=== PATIENT | male | born 1985 | race Asian ===

== ENCOUNTER 2019-06-13 10:13 | Emergency (ER) | payer SELFPAY ==
[2019-06-13] MEDS ORDERED: DICYCLOMINE HCL 10 MG CAP ONE (11:37)
[2019-06-13] MEDS ORDERED: NA CHLORIDE 0.9% 1,000 ML ONE ×2 (11:37→12:25)
[2019-06-13 11:40] LABS: Absolute Lymphocytes (CBC) 1.6 K/uL (0.7-4.9); Basophils % 0.3 % (0-1.3); Hematocrit 41.5 % (39.6-49.0); Lymphocytes % 27.9 % (15.3-44.8); MPV 9.1 fL (7.6-11.3); RBC Red Blood Cell Count 4.67 M/uL (4.33-5.43)
[2019-06-13 12:07] LABS: ALT/SGPT 23 U/L (12-78); AST/SGOT 11 U/L (15-37); Albumin 3.4 g/dL (3.4-5.0); Alkaline Phosphatase 103 U/L (45-117); BUN Blood Urea Nitrogen 8 mg/dL (7-18); Bicarbonate 27 mmol/L (21-32); Bilirubin Direct < 0.1 mg/dL (0-0.2); Bilirubin Total 0.2 mg/dL (0.2-1.0); Lipase 62 U/L (73-393); Potassium 3.6 mmol/L (3.5-5.1); Protein, Total 6.9 g/dL (6.4-8.2); Sodium Level 137 mmol/L (136-145)
[2019-06-13 12:10] LABS: Glucose Level 403 mg/dL (74-106)
[2019-06-13] MEDS ORDERED: INSULIN -REGULAR HUMAN 50 UNIT/0.5 ML ML ONE (12:24)
--- NOTE | 2019-06-13 14:45 | ER ---
Nurse's Notes [facility] Name: eFr Whelan Age: 34 yrs Sex: Male : 1985 Arrival Date: 06/13/2019 Time: 10:16 Bed 18 Private MD: Diagnosis: Other abdominal pain;Diarrhea, unspecified;Hyperglycemia, unspecified Presentation: 06/12 10:44 Chief complaint: Patient states: Diarrhea and lower abdominal pain x 3 days, denies jl7 N/V, reports subjective fever yesterday. Coronavirus screen: The patient has NOT traveled to a country currently being monitored by the [facility] within the last 14 days. Proceed with normal triage procedures. Ebola Screen: No symptoms or risks identified at this time. Initial Sepsis Screen: Does the patient meet any 2 criteria? No. Patient's initial sepsis screen is negative. Does the patient have a suspected source of infection? No. Patient's initial sepsis screen is negative. Risk Assessment: Do you want to hurt yourself or someone else? Patient reports no desire to harm self or others. Onset of symptoms was June 10, 2019. Care prior to arrival: None. 10:44 Method Of Arrival: Ambulatory jl7 10:44 Acuity: JOSE L 3 jl7 Triage Assessment: 10:50 General: Appears in no apparent distress. uncomfortable, Behavior is calm, cooperative, jl7 appropriate for age. Pain: Complains of pain in right lower quadrant and left lower quadrant Pain currently is 9 out of 10 on a pain scale. Quality of pain is described as crampy. Neuro: Level of Consciousness is awake, alert, obeys commands, Oriented to person, place, time, situation. Cardiovascular: Patient's skin is warm and dry. Respiratory: Airway is patent Respiratory effort is even, unlabored, Respiratory pattern is regular, symmetrical. GI: Reports diarrhea, Patient currently denies nausea, vomiting. Derm: Skin is pink, warm \T\ dry. Historical: - Allergies: 10:50 No Known Allergies; jl7 - Home Meds: 10:50 None [Active]; jl7 - PMHx: 10:50 None; jl7 - PSHx: 10:50 None; jl7 - Immunization history:: Adult Immunizations not up to date. - Social history:: Smoking status: Patient denies any tobacco usage or history of. Screenin:12 Abuse screen: Denies threats or abuse. Nutritional screening: No deficits noted. rb1 Tuberculosis screening: No symptoms or risk factors identified. Fall Risk None identified. Assessment: 11:12 General: Appears in no apparent distress. comfortable, Behavior is calm, cooperative, rb1 Denies fever. General: Reports chills for 2-3 days. Pain: Complains of pain in abdomen Pain currently is 8 out of 10 on a pain scale. Pain began 2-3 days ago. Neuro: Level of Consciousness is awake, alert, obeys commands, Oriented to person, place, time, situation. Cardiovascular: Capillary refill < 3 seconds is brisk in bilateral fingers. Respiratory: Airway is patent Respiratory effort is even, unlabored, Respiratory pattern is regular, symmetrical. GI: Bowel sounds present X 4 quads. Abd is soft Reports diarrhea, since today. : No signs and/or symptoms were reported regarding the genitourinary system. Derm: Skin is pink, warm \T\ dry. Musculoskeletal: Range of motion: intact in all extremities. 12:44 Reassessment: Patient appears in no apparent distress at this time. Patient and/or rb1 family updated on plan of care and expected duration. Pain level reassessed. Patient is alert, oriented x 3, equal unlabored respirations, skin warm/dry/pink. 13:41 Reassessment: Patient appears in no apparent distress at this time. No changes from rb1 previously documented assessment. 14:41 Reassessment: Patient appears in no apparent distress at this time. Patient and/or rb1 family updated on plan of care and expected duration. Pain level reassessed. Patient is alert, oriented x 3, equal unlabored respirations, skin warm/dry/pink. Vital Signs: 10:44 BP 110 / 82; Pulse 86; Resp 17 S; Temp 98.4(O); Pulse Ox 98% on R/A; Weight 68.95 kg jl7 (R); Height 5 ft. 9 in. (175.26 cm) (R); Pain 9/10; 12:00 BP 107 / 60; Pulse 83; Resp 19; Pulse Ox 100% on R/A; rb1 13:00 BP 112 / 60; Pulse 73; Resp 17; Pulse Ox 100% on R/A; Pain 5/10; rb1 14:00 BP 112 / 60; Pulse 73; Resp 16; Pulse Ox 100% on R/A; rb1 15:00 BP 105 / 66; Pulse 70; Resp 17; Pulse Ox 100% on R/A; rb1 10:44 Body Mass Index 22.45 (68.95 kg, 175.26 cm) jl7 ED Course: 10:16 Patient arrived in ED. ag5 10:50 Triage completed. jl7 10:50 Arm band placed on right wrist. jl7 11:11 Emanuel Noonan FNP-C [facility]. la1 11:11 Amando Singh MD is Attending Physician. la1 11:12 Patient has correct armband on for positive identification. Bed in low position. Call rb1 light in reach. Side rails up X 1. Placed in gown. Pulse ox on. NIBP on. Warm blanket given. 11:30 Franny Marie, RN is Primary Nurse. rb1 11:34 No provider procedures requiring assistance completed. Inserted saline lock: 20 gauge mg2 in left antecubital area, using aseptic technique. Blood collected. 15:04 IV discontinued, intact, bleeding controlled, No redness/swelling at site. Pressure rb1 dressing applied. Administered Medications: 11:35 Drug: NS 0.9% 1000 ml Route: IV; Rate: 1000 ml; Site: left antecubital; rb1 12:36 Follow up: IV Status: Completed infusion rb1 11:35 Drug: Bentyl 20 mg Route: PO; rb1 12:06 Follow up: Response: No adverse reaction rb1 12:26 Drug: NS 0.9% 1000 ml Route: IV; Rate: 1000 ml; Site: left antecubital; rb1 13:40 Follow up: IV Status: Completed infusion rb1 12:26 Drug: Insulin Regular Human 5 units {Co-Signature: mg2 (Ciaran Barton RN).} Route: rb1 IVP; Site: left antecubital; 14:10 Follow up: Response: No adverse reaction; Blood sugar is lowered rb1 12:26 Drug: Insulin Regular Human 5 units {Co-Signature: mg2 (Ciaran Barton RN).} Route: rb1 Sub-Q; Site: right upper arm; 14:10 Follow up: Response: No adverse reaction; Blood sugar is lowered rb1 Point of Care Testing: Blood Glucose: 14:10 Blood Glucose: 193 mg/dL; rb1 Ranges: Outcome: 14:31 Discharge ordered by . la1 15:04 Discharged to home ambulatory. rb1 15:04 Condition: stable 15:04 Discharge instructions given to patient, Instructed on discharge instructions, follow up and referral plans. medication usage, Demonstrated understanding of instructions, follow-up care, medications, Prescriptions given X 1. 15:05 Patient left the ED. rb1 Signatures: Emanuel Noonan, ROSS FURNACE OPERATOR-C ROSS FURNACE OPERATOR-Cla1 Franny Marie RN RN rb1 Lexy Longoria RN RN jl7 Ciaran Barton RN RN mg2 Mateo Brandon [facility] Ciaran Barton RN mg2
--- NOTE | 2019-06-13 14:46 | EDPHYS ---
Physician Documentation [facility] Name: Fer Whelan Age: 34 yrs Sex: Male : 1985 Arrival Date: 06/13/2019 Time: 10:16 Bed 18 Private MD: ED Physician Amando Singh HPI: 06/12 11:22 This 34 yrs old Male presents to ER via Ambulatory with complaints of Abdominal la1 Pain. 11:22 The patient presents with abdominal pain that is diffuse. Onset: The symptoms/episode la1 began/occurred 3 day(s) ago. The symptoms do not radiate. Associated signs and symptoms: Pertinent positives: diarrhea, Pertinent negatives: nausea and vomiting, blood in stools, dysuria, fever, shortness of breath, testicular pain, vomiting. The symptoms are described as crampy. Modifying factors: The symptoms are alleviated by nothing, the symptoms are aggravated by nothing. The patient has not experienced similar symptoms in the past. Historical: - Allergies: 10:50 No Known Allergies; jl7 - Home Meds: 10:50 None [Active]; jl7 - PMHx: 10:50 None; jl7 - PSHx: 10:50 None; jl7 - Immunization history:: Adult Immunizations not up to date. - Social history:: Smoking status: Patient denies any tobacco usage or history of. ROS: 11:23 Constitutional: Negative for fever, chills, and weight loss, Eyes: Negative for injury, la1 pain, redness, and discharge, ENT: Negative for injury, pain, and discharge, Neck: Negative for injury, pain, and swelling, Cardiovascular: Negative for chest pain, palpitations, and edema, Respiratory: Negative for shortness of breath, cough, wheezing, and pleuritic chest pain. 11:23 Back: Negative for injury and pain, : Negative for injury, bleeding, discharge, and swelling, MS/Extremity: Negative for injury and deformity, Neuro: Negative for headache, weakness, numbness, tingling, and seizure. 11:23 Abdomen/GI: Positive for abdominal pain, diarrhea. Exam: 11:25 Constitutional: This is a well developed, well nourished patient who is awake, alert, la1 and in no acute distress. Head/Face: Normocephalic, atraumatic. Chest/axilla: Normal chest wall appearance and motion. Nontender with no deformity. No lesions are appreciated. Cardiovascular: Regular rate and rhythm with a normal S1 and S2. No gallops, murmurs, or rubs. Normal PMI, no JVD. No pulse deficits. Respiratory: Lungs have equal breath sounds bilaterally, clear to auscultation 11:25 Abdomen/GI: Inspection: abdomen appears normal, Bowel sounds: hyperactive, Palpation: abdomen is soft and non-tender, in all quadrants, Indicators: McBurney's point is not tender, Saini's sign is negative, Rovsing's sign is negative, Obturator sign is negative, Psoas sign is negative. 11:25 Back: CVA tenderness, is absent. Vital Signs: 10:44 BP 110 / 82; Pulse 86; Resp 17 S; Temp 98.4(O); Pulse Ox 98% on R/A; Weight 68.95 kg jl7 (R); Height 5 ft. 9 in. (175.26 cm) (R); Pain 9/10; 12:00 BP 107 / 60; Pulse 83; Resp 19; Pulse Ox 100% on R/A; rb1 13:00 BP 112 / 60; Pulse 73; Resp 17; Pulse Ox 100% on R/A; Pain 5/10; rb1 14:00 BP 112 / 60; Pulse 73; Resp 16; Pulse Ox 100% on R/A; rb1 15:00 BP 105 / 66; Pulse 70; Resp 17; Pulse Ox 100% on R/A; rb1 10:44 Body Mass Index 22.45 (68.95 kg, 175.26 cm) jl7 MDM: 11:21 Patient medically screened. la1 14:22 Data reviewed: vital signs, nurses notes, lab test result(s), and as a result, I will la1 discharge patient. Data interpreted: Pulse oximetry: on room air is 100 %. Interpretation: normal. Counseling: I had a detailed discussion with the patient and/or guardian regarding: the historical points, exam findings, and any diagnostic results supporting the discharge/admit diagnosis, lab results, the need for outpatient follow up, a family practitioner, to return to the emergency department if symptoms worsen or persist or if there are any questions or concerns that arise at home. 14:23 Special discussion: Based on the history and exam findings, there is no indication for la1 further emergent testing or inpatient evaluation. I discussed with the patient/guardian the need to see the primary care provider for further evaluation of the symptoms. ED course: Pt BGL highly elevated, pt not a known diabetic. BGL lowered in the ED, pt was hydrated, no anion gap acidosis present. Pt tolerating PO, states he has had polydipsia for > 5 years but never been told anything about it. Due to pt body habitus and age I believe there is a good chance that the pt is a insulin dependent diabetic. C-peptide drawn in the ED, pt instructed to get an appointment ELSA with an family practice physician, pt amendable to plan and states he has the resources to get appropriate FU, strict return precautions given. 06/12 11:17 Order name: Basic Metabolic Panel; Complete Time: 12:14 la1 06/12 11:17 Order name: CBC with Diff; Complete Time: 12:14 la1 06/12 11:17 Order name: Hepatic Function; Complete Time: 12:14 la1 06/12 11:17 Order name: Lipase; Complete Time: 12:14 la1 06/12 12:31 Order name: Glucose, Ancillary Testing; Complete Time: 14:31 EDMS 06/12 12:33 Order name: C-Peptide EDMS 06/12 11:17 Order name: IV Saline Lock; Complete Time: 11:34 la1 06/12 11:17 Order name: Labs collected and sent; Complete Time: 11:34 la1 06/12 14:30 Order name: Glucose, Ancillary Testing; Complete Time: 14:31 EDMS Administered Medications: 11:35 Drug: NS 0.9% 1000 ml Route: IV; Rate: 1000 ml; Site: left antecubital; rb1 12:36 Follow up: IV Status: Completed infusion rb1 11:35 Drug: Bentyl 20 mg Route: PO; rb1 12:06 Follow up: Response: No adverse reaction rb1 12:26 Drug: NS 0.9% 1000 ml Route: IV; Rate: 1000 ml; Site: left antecubital; rb1 13:40 Follow up: IV Status: Completed infusion rb1 12:26 Drug: Insulin Regular Human 5 units {Co-Signature: mg2 (Ciaran Barton RN).} Route: rb1 IVP; Site: left antecubital; 14:10 Follow up: Response: No adverse reaction; Blood sugar is lowered rb1 12:26 Drug: Insulin Regular Human 5 units {Co-Signature: mg2 (Ciaran Barton RN).} Route: rb1 Sub-Q; Site: right upper arm; 14:10 Follow up: Response: No adverse reaction; Blood sugar is lowered rb1 Point of Care Testing: Blood Glucose: 14:10 Blood Glucose: 193 mg/dL; rb1 Ranges: Critical Glucose Levels:Adult <50 mg/dl or >400 mg/dl <40 mg/dl or >180 mg/dl Disposition: 17:23 Co-signature as Attending Physician, Amando Singh MD I agree with the assessment and [facility] plan of care. 17:23 Co-signature as Attending Physician, Amando Singh MD I agree with the assessment and [facility] plan of care. Disposition: 06/13/19 14:31 Discharged to Home. Impression: Other abdominal pain, Diarrhea, unspecified, Hyperglycemia, unspecified. - Condition is Stable. - Discharge Instructions: Food Choices to Help Relieve Diarrhea, Adult, Diarrhea, Adult, Hyperglycemia, Type 1 Diabetes Mellitus, Self Care, Adult. - Prescriptions for Bentyl 20 mg Oral Tablet - take 1 tablet by ORAL route every 6 hours As needed; 20 tablet. - Medication Reconciliation Form, Thank You Letter form. - Follow up: Private Physician; When: 2 - 3 days; Reason: Worsening of condition, Recheck today's complaints, Re-evaluation by your physician. Follow up: Emergency Department; When: As needed; Reason: If symptoms return, Worsening of condition. - Problem is new. - Symptoms have improved. Signatures: Dispatcher [employer] EDID Amando Singh MD MD [facility] Emanuel Noonan FNP-C SPRAY BOOTH OPERATOR-Reginaldo1 Franny Marie, RN RN rb1 Lexy Longoria RN RN jl7 Ciaran Barton RN mg2 Corrections: (The following items were deleted from the chart) 15:05 14:31 06/13/2019 14:31 Discharged to Home. Impression: Other abdominal pain; Diarrhea, rb1 unspecified; Hyperglycemia, unspecified. Condition is Stable. Discharge Instructions: Food Choices to Help Relieve Diarrhea, Adult, Diarrhea, Adult, Hyperglycemia, Type 1 Diabetes Mellitus, Self Care, Adult. Prescriptions for Bentyl 20 mg Oral Tablet - take 1 tablet by ORAL route every 6 hours As needed; 20 tablet. and Forms are Medication Reconciliation Form, Thank You Letter, Antibiotic Education, Prescription Opioid Use. Follow up: Private Physician; When: 2 - 3 days; Reason: Worsening of condition, Recheck today's complaints, Re-evaluation by your physician. Follow up: Emergency Department; When: As needed; Reason: If symptoms return, Worsening of condition. Problem is new. Symptoms have improved. la1
[2019-06-13 15:49] VITALS: TEMP 98.4
[2019-06-13 15:50] VITALS: O2SAT 100
[2019-06-13 15:55] VITALS: BP 105/66
== END 2019-06-13 15:05 | disposition home or self-care (01) ==
LOC: ER 10:13
DX: R19.7 Diarrhea, unspecified (principal); R73.9 Hyperglycemia, unspecified
CPT/HCPCS: 36415; 80048; 80076; 82947; 83690; 84681; 85025; 96361; 96372; 96374; 99284; J7030